=== PATIENT | female | born 1955 | race Caucasian/White ===

== ENCOUNTER 2021-08-04 09:11 | Day surgery (SDC) | payer OTHER ==
[2021-07-30 14:22] VITALS: BMI 53.8
[2021-08-04] MEDS ORDERED: CELECOXIB 200 MG CAPSULE PO ONE (09:19)
[2021-08-04] MEDS ORDERED: CEFAZOLIN 3 GM in DEXTROSE 5%-WATER - 100 ML IVPB ONE (09:19)
[2021-08-04] MEDS ORDERED: TRANEXAMIC ACID 1000 MG/10 ML VIAL IVPUSH ONE (09:19)
[2021-08-04] MEDS ORDERED: MIDAZOLAM HCL 2 MG/2 ML SINGLE DOSE VIAL ONE (10:04)
[2021-08-04] MEDS ORDERED: BUPIVACAINE HCL 50 ML ONE ×2 (10:05→10:58)
[2021-08-04] MEDS ORDERED: BUPIVACAINE LIPOSOME/PF (EXPAREL) 266 MG/20 ML VIAL ONE (10:05)
[2021-08-04] MEDS ORDERED: SODIUM CHLORIDE 0.9% P/F 10 ML VIAL IJ ONE (10:05)
[2021-08-04] MEDS ORDERED: ceFAZolin SODIUM 1 GM VIAL ONE ×3 (10:20→18:49)
[2021-08-04] MEDS ORDERED: VANCOMYCIN 1,000 MG VIAL (RESTRICTED TO ID ONLY) ONE (10:20)
[2021-08-04] MEDS ORDERED: LACTATED RINGERS SOLUTION 1,000 ML IV SCH (11:00)
[2021-08-04] MEDS ORDERED: MAG HYDROX/AL HYDROX/SIMETH 30 ML UNIT-DOSE CUP PO PRN (11:00)
[2021-08-04] MEDS ORDERED: ONDANSETRON 4 MG/2 ML VIAL IVPUSH PRN (11:00)
[2021-08-04] MEDS ORDERED: TRANEXAMIC ACID 1000 MG/10 ML VIAL ONE (11:21)
[2021-08-04] MEDS ORDERED: DEXAMETHASONE SOD PHOSPHATE 4 MG/1 ML VIAL ONE (11:22)
[2021-08-04] MEDS ORDERED: ONDANSETRON 4 MG/2 ML VIAL ONE (11:22)
[2021-08-04] MEDS ORDERED: VASOPRESSIN 20 UNITS/ML VIAL IV ONE (11:50)
[2021-08-04] MEDS ORDERED: PROPOFOL 20 ML ONE ×3 (12:12→13:02)
[2021-08-04] MEDS: ACETAMINOPHEN 1000 MG/100 ML BAG IVPB ONE ×2 (14:05→14:15)
[2021-08-04] MEDS: oxyCODONE HCL 5 MG TABLET PO PRN ×2 (14:55→18:54)
[2021-08-04] MEDS ORDERED: DEXTROSE 5%-WATER - 100 ML IVPB ONE (18:49)
[2021-08-04] MEDS: CEFAZOLIN 3 GM in DEXTROSE 5%-WATER - 100 ML IVPB SCH (18:54)
[2021-08-04] MEDS: SENNOSIDES/DOCUSATE COMBO (SENNA PLUS) TABLET (UD) PO SCH (21:47)
[2021-08-04] MEDS: oxyCODONE HCL 10 MG SUSTAINED ACTING TABLET PO SCH (21:47)
[2021-08-05] MEDS: CEFAZOLIN 3 GM in DEXTROSE 5%-WATER - 100 ML IVPB SCH (02:01)
[2021-08-05] MEDS: oxyCODONE HCL 5 MG TABLET PO PRN ×4 (04:21→19:42)
[2021-08-05 08:28] LABS: HEMATOCRIT 38.5 % (32.4-45.2); MCH 27.9 pg (25.7-33.7); MCHC 33.7 g/dl (32.0-36.0); MEAN CELL VOLUME 82.7 fl (80-96); MEAN PLT VOLUME 7.8 fl (7.5-11.1); PLATELET COUNT 230 10^3/uL (134-434); RBC 4.66 M/mm3 (3.60-5.2); RDW 13.7 % (11.6-15.6); WHITE BLOOD COUNT 12.8 K/mm3 (4.0-10.0)
[2021-08-05] MEDS: PANTOPRAZOLE 40 MG TABLET PO SCH (11:53)
[2021-08-05] MEDS: MULTIVITAMINS (DAILY MVI) TABLET (FP) PO SCH (11:54)
[2021-08-05] MEDS: SENNOSIDES/DOCUSATE COMBO (SENNA PLUS) TABLET (UD) PO SCH ×2 (11:54→21:26)
[2021-08-05] MEDS: PARoxetine HCL 20 MG TABLET PO SCH (11:55)
[2021-08-05] MEDS: ASPIRIN 325 MG TABLET PO SCH (11:55)
[2021-08-05] MEDS: oxyCODONE HCL 10 MG SUSTAINED ACTING TABLET PO SCH ×2 (12:21→21:27)
[2021-08-06] MEDS: LACTATED RINGERS SOLUTION 1,000 ML IV SCH ×2 (07:54→07:55)
[2021-08-06] MEDS: ACETAMINOPHEN 1000 MG/100 ML BAG IVPB ONE (07:55)
[2021-08-06] MEDS: ASPIRIN 325 MG TABLET PO SCH (08:11)
[2021-08-06] MEDS: oxyCODONE HCL 5 MG TABLET PO PRN ×2 (08:11→12:14)
[2021-08-06 09:09] VITALS: BP 129/80; PULSE 74; TEMP 98.7
[2021-08-06] MEDS: oxyCODONE HCL 10 MG SUSTAINED ACTING TABLET PO SCH (09:20)
[2021-08-06] MEDS: PARoxetine HCL 20 MG TABLET PO SCH (09:21)
[2021-08-06] MEDS: MULTIVITAMINS (DAILY MVI) TABLET (FP) PO SCH (09:21)
[2021-08-06] MEDS: SENNOSIDES/DOCUSATE COMBO (SENNA PLUS) TABLET (UD) PO SCH (09:21)
[2021-08-06] MEDS: PANTOPRAZOLE 40 MG TABLET PO SCH (09:21)
[2021-08-06 09:28] LABS: HEMATOCRIT 36.2 % (32.4-45.2); HEMOGLOBIN 12.5 GM/dL (10.7-15.3); MCH 28.2 pg (25.7-33.7); MCHC 34.4 g/dl (32.0-36.0); MEAN PLT VOLUME 8.2 fl (7.5-11.1); PLATELET COUNT 210 10^3/uL (134-434); RBC 4.42 M/mm3 (3.60-5.2); RDW 13.5 % (11.6-15.6); WHITE BLOOD COUNT 11.3 K/mm3 (4.0-10.0)
== END 2021-08-06 12:57 ==
LOC: FASUSAT 09:11 → FM/S 14:59 → FASUSAT 08-06 12:57
PROVIDERS: ATTEND Orthopaedic Surgery
PROC: 8E0YXBZ Computer Assisted Procedure of Lower Extremity (ICD-10-PCS; 2021-08-04)
PROC: 8E0Y0CZ Robotic Assisted Procedure of Lower Extremity, Open Approach (ICD-10-PCS; 2021-08-04)
PROC: 0SRC0J9 Replacement of Right Knee Joint with Synthetic Substitute, Cemented, Open Approach (ICD-10-PCS; principal; 2021-08-04 11:41)
DX: M17.11 Unilateral primary osteoarthritis, right knee (principal); I10 Essential (primary) hypertension
CPT/HCPCS: 20985; 27447; C1776; S2900; 36415; 73560-TC-RT-FY; 85027; 94760; 97010-GP; 97116-GP; 97163-GP